=== PATIENT | male | born 1960 | race Two or more races ===

== ENCOUNTER 2021-04-28 06:23 | Inpatient (IN) | payer OTHER ==
[2021-04-27 20:00] VITALS: BP 95/46
[~2021-04-28] VITALS: Ht 167.6 cm; Wt 95.6 kg
[2021-04-28] VITALS (31 sets, daily range): BP systolic 80–157; BP diastolic 49–91
[~2021-04-28 06:23] MED LIST: CALC625T62 PO; CHOL400T57 PO; ENOX40DI11 SQ; KETO15CR2 TP; NAPR375T5 PO; OMEP20TA5 PO; ONQPUMP ADDCANAL; POLY15DR17 EACHEYE; TERA5CAP4 PO; cefazolin/dext.iso 2gm/50ml IV ONE; famotidine 20mg tablet PO ONE; ringers solution, lacted 1,000 ML IV SCH; tranexamic acid inj. 1,000 MG in 0.7% saline 100 ML PMX IV ONE; vancomycin 1,500 MG in NS 300ml IV soln IV ONE
[2021-04-28 07:17] LABS: ISTAT ANION GAP 13 (8-12); ISTAT BUN 9 mg/dL (7-18); ISTAT CL 104 mmol/L (99-107); ISTAT CREATININE 0.8 mg/dL (0.8-1.3); ISTAT GLUCOSE 99 mg/dL (70-105); ISTAT HGB 15.3 g/dl (14.0-18.0); ISTAT Hct 45 %PCV (42-52); ISTAT IONIZED CALCIUM 1.24 mmol/L (1.03-1.32); ISTAT K 3.8 mmol/L (3.5-5.1); ISTAT NA 140 mmol/L (135-145); ISTAT TOTAL CO2 23 mmol/L (24-32); ISTAT eGFR > 90 ML/MIN; POC BUN/CREATININE RATIO 11.3 (5.4-32.0)
[2021-04-28] MEDS ORDERED: epiNEPHrine 1 mg/ml inj ONE (07:48)
[2021-04-28] MEDS ORDERED: ketorolac trometh. 30mg/ml inj. ONE (07:48)
[2021-04-28] MEDS ORDERED: morphine 10mg/ml inj. ONE (07:48)
[2021-04-28] MEDS ORDERED: ROPIVAcaine 0.5% (5mg/ml) 30ml vial ONE ×2 (07:49→10:01)
[2021-04-28] MEDS ORDERED: vancomycin 1,000mg inj ONE (07:49)
[2021-04-28] MEDS ORDERED: Thrombin (Bovine) 5,000 unit vial TP ONE (07:50)
[2021-04-28] MEDS ORDERED: tetracaine 1% (10mg/ml) pres. free inj. ONE (08:09)
[2021-04-28] MEDS ORDERED: MIDAZolam 1mg/ml 10ml vial ONE (08:13)
[2021-04-28] MEDS ORDERED: FENTANYL CITRATE/PF 50 MCG/1 ML VIAL ONE (08:13)
[2021-04-28] MEDS ORDERED: morphine 2 MG/ML inj. syringe IV PRN (09:35)
[2021-04-28] MEDS ORDERED: meperidine/PF 25mg/ml syringe IV PRN ×3 (09:35)
[2021-04-28] MEDS ORDERED: ringers solution, lacted 1,000 ML IV SCH (09:35)
[2021-04-28] MEDS ORDERED: proCHLORperazine 10 MG/2 ml inj IV PRN (09:35)
[2021-04-28] MEDS ORDERED: ROPIVAcaine 0.2%/PF PUMP/bolus 545 ML ADDCANAL SCH (09:35)
[2021-04-28] MEDS ORDERED: ROPIVAcaine 0.2% (10 MG/5 ML) BOLUS INJECTION ADDCANAL PRN (09:35)
[2021-04-28] MEDS ORDERED: ondansetron/PF 4mg/2ml inj IV PRN ×2 (09:35→11:00)
[2021-04-28] MEDS ORDERED: morphine 4 MG/ML inj SYRINge IV PRN (09:35)
[2021-04-28] MEDS ORDERED: propofol inj 20 ML IV ONE ×2 (10:01)
--- NOTE | 2021-04-28 10:48 | NUR ---
Received from OR via hospital bed, accompanied by Anesthesiologist Dr. John and report given by Anesthesiolgist. Patient A&O, BP labile and dermatones done with patient feeling at two fingers above umbilicus. LR running at 100ml/hr via left hand 18G. Left knee dressing CDI, hemovac with sanguenous drainage in hemovac. Dr. gerardo aware of high dermatones and is not concerned, says "give it an hour". Dr. Mckeon made aware of drainage in hemovac. Addendum: 04/28/21 at 1319 by Jeniffer Hirsch RN 1048 dermatones T9
[2021-04-28] MEDS: potassium cl 20mEq in 1/2 NS 1,000 ML IV SCH ×2 (11:00→19:00)
[2021-04-28] MEDS ORDERED: oxyCODONE IR 5mg (immed. release) tablet PO PRN (11:00)
[2021-04-28] MEDS ORDERED: HYDROmorphone 1 mg/ml syringe IV PRN (11:00)
[2021-04-28] MEDS ORDERED: tranexamic acid inj. 960 MG in normal saline 100ml IV soln 100 ML IV ONE (11:00)
[2021-04-28] MEDS ORDERED: magnesium hydroxide 30ml (MOM) UD suspension PO PRN (11:00)
[2021-04-28] MEDS ORDERED: HYDROmorphone inj. 0.5 MG/0.5 ML DISP.SYRIN IV PRN (11:00)
[2021-04-28] MEDS ORDERED: bisacodyl 10mg suppository rectal RC PRN (11:00)
[2021-04-28] MEDS ORDERED: acetaminophen 325mg tablet PO PRN (11:00)
[2021-04-28] MEDS ORDERED: diphenhydrAMINE 25mg capsule PO PRN ×2 (11:00)
--- NOTE | 2021-04-28 11:40 | NUR ---
T11 dermatones, below umbilicus
--- NOTE | 2021-04-28 12:00 | NUR ---
Called report to receiving nurseJes. All questions answered.
--- NOTE | 2021-04-28 12:20 | NUR ---
dermatones L1
[2021-04-28] MEDS ORDERED: albuterol 2.5 MG/3 ML nebule NEB ONE (12:25)
--- NOTE | 2021-04-28 12:58 | NUR ---
Contacted Dr. John due to patient still having labile BP. Stated it ok to move patient to the floor.
[2021-04-28] MEDS: gabapentin 300mg capsule PO SCH ×2 (13:00→20:35)
--- NOTE | 2021-04-28 13:00 | NUR ---
Patient transported with all belongings up to [facility]
--- NOTE | 2021-04-28 13:10 | NUR ---
Received pt from recovery after getting report from RN. guards present at bedside. On-Q set to 2 pt denies pain but instructed on use and adjustment as needed. Pt verbalizes understanding.
[2021-04-28] MEDS: acetaminophen 325mg tablet PO SCH ×2 (14:00→20:35)
[2021-04-28] MEDS ORDERED: tranexamic acid 1gm/0.7% sal. 100 ML IV ONE (14:00)
[2021-04-28] MEDS ORDERED: ceFAZolin/D5W- 1GM premix 50 ML IV SCH (16:00)
--- NOTE | 2021-04-28 18:34 | NUR ---
Problems reprioritized. Patient report given, questions answered & plan of care reviewed with COLLIN Clayton.
--- NOTE | 2021-04-28 18:40 | NUR ---
Patient in room [facility]. I have received report from MARK POLANCO and had the opportunity to ask questions and assume patient care.
--- NOTE | 2021-04-28 18:50 | NUR ---
PATIENT'S HEMOVAC CLAMPED PER MD'S ORDER UP TO 3 HOURS.
[2021-04-28] MEDS ORDERED: DOCU-148 PO (19:44)
[2021-04-28] MEDS ORDERED: XAL0.005OS EACHEYE (19:44)
[2021-04-28] MEDS ORDERED: FAMO-49 PO (19:44)
[2021-04-28] MEDS ORDERED: TERA2CAP4 PO (19:44)
[2021-04-28] MEDS ORDERED: VANCOMYCIN 1GM/200ML IVPB 200 ML IV SCH (20:00)
[2021-04-28] MEDS: ceFAZolin/D5W- 1GM premix 50 ML IV SCH (20:34)
[2021-04-28] MEDS: oxyCODONE IR 5mg (immed. release) tablet PO PRN (20:37)
[2021-04-28] MEDS ORDERED: sennosides 8.6mg tablet PO SCH (21:00)
--- NOTE | 2021-04-28 21:50 | NUR ---
PATIENT'S HEMOVAC OPENED FOR DRAINAGE AND WILL WAIT AN HOUR TO MEASURE THE OUTPUT AND IF MORE THAN [address] GURROLA.
--- NOTE | 2021-04-28 22:50 | NUR ---
HEMOVAC OUTPUT MEASURED 90ML FOR 3 HOURS AFTER CLAMPING.
[2021-04-29] VITALS: BP 131/65
[2021-04-29] MEDS: potassium cl 20mEq in 1/2 NS 1,000 ML IV SCH (00:44)
[2021-04-29] MEDS: acetaminophen 325mg tablet PO SCH ×2 (02:00→08:00)
[2021-04-29] MEDS: ceFAZolin/D5W- 1GM premix 50 ML IV SCH (04:00)
[2021-04-29] MEDS: oxyCODONE IR 5mg (immed. release) tablet PO PRN (05:24)
[2021-04-29 06:05] LABS: ANION GAP 7 (8-16); CHLORIDE 106 MMOL/L (99-107); POTASSIUM 3.8 MMOL/L (3.5-5.1); SODIUM 137 MMOL/L (135-145); TOTAL CARBON DIOXIDE 24.1 MMOL/L (24-32)
[2021-04-29 06:14] LABS: BASOPHILS % (AUTO) 0.4 % (0-1); EOSINOPHILS # (AUTO) 0.2 X10'3 (0-0.9); HEMATOCRIT 34.7 % (42.0-52.0); HEMOGLOBIN 11.9 g/dl (14.0-17.9); MEAN CORPUSCULAR HEMOGLOBIN 28.2 PG (27.0-31.0); MEAN CORPUSCULAR HGB CONC 34.3 g/dL (33.0-36.5); MEAN CORPUSCULAR VOLUME 82.3 FL (78-98); MEAN PLATELET VOLUME 6.8 FL (7.4-10.4); MONOCYTES # (AUTO) 1.2 X10'3 (0-0.9); MONOCYTES % (AUTO) 12.6 % (2-12); NEUTROPHILS # (AUTO) 6.1 X10'3 (1.8-7.7); PLATELET COUNT 204 X10'3 (140-440); RED BLOOD COUNT 4.22 X10'6 (4.70-6.10); RED CELL DISTRIBUTION WIDTH 13.7 % (11.5-14.5); WHITE BLOOD COUNT 9.6 X10'3 (4.5-11.0)
--- NOTE | 2021-04-29 06:26 | NUR ---
Problems reprioritized. Patient report given, questions answered & plan of care reviewed with MARK POLANCO.
[2021-04-29 07:00] VITALS: BP 94/48
[2021-04-29] MEDS: gabapentin 300mg capsule PO SCH (08:00)
[2021-04-29] MEDS ORDERED: celeCOXIB 100mg capsule PO SCH (20:00)
[2021-04-30] MEDS ORDERED: acetaminophen 325mg tablet PO PRN (11:00)
== END 2021-04-29 09:50 | DRG 470 ==
LOC: PAS IN 06:23 → EEVIPCON 08:30 → EDSTATUS 08:30 → SUR 3N 13:07
PROVIDERS: ADMIT Orthopaedic Surgery; ATTEND Orthopaedic Surgery
PROC: 3E0T3BZ Introduction of Anesthetic Agent into Peripheral Nerves and Plexi, Percutaneous Approach (ICD-10-PCS; 2021-04-28)
PROC: 3E0T33Z Introduction of Anti-inflammatory into Peripheral Nerves and Plexi, Percutaneous Approach (ICD-10-PCS; 2021-04-28)
PROC: 0SRD0JA Replacement of Left Knee Joint with Synthetic Substitute, Uncemented, Open Approach (ICD-10-PCS; principal; 2021-04-28 08:06)
DX: M17.12 Unilateral primary osteoarthritis, left knee (principal); D62 Acute posthemorrhagic anemia; J44.9 Chronic obstructive pulmonary disease, unspecified; N40.0 Benign prostatic hyperplasia without lower urinary tract symptoms; Z79.899 Other long term (current) drug therapy
CPT/HCPCS: Z7506; Z7508; 36415; 73560; 80047; 80051; 85025; 97110; 97116; 97161; 97530; A4215; A7000; C1758; C1776; G0378; J0171; J0690; J1885; J2250; J2274; J2704; J2795; J3010; J3370; J3480; J3490; J7040; J7120